=== PATIENT | female | born 1995 ===

== ENCOUNTER 2017-12-18 11:06 | Emergency (ER) | payer OTHER ==
[2017-12-18 11:17] VITALS: BP 115/80; PULSE 98; RESP 18; TEMP 98; O2SAT 98
[2017-12-18] MEDS ORDERED: cefTRIAXone (Rocephin) 250 mg Inj IM STA (11:26)
[2017-12-18] MEDS ORDERED: Emtricitabine-Tenofovir 200 mg-300 mg Tab PO STA (11:26)
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
[2017-12-18 12:59] LABS: HCG,QUALITATIVE URINE NEGATIVE (NEGATIVE)
[2017-12-18 13:03] LABS: SQUAMOUS EPITHIAL 1 /hpf (0-5); URINE BILIRUBIN NEGATIVE (NEGATIVE); URINE BLOOD NEGATIVE (NEGATIVE); URINE CLARITY Clear (Clear); URINE COLOR Yellow (YELLOW); URINE GLUCOSE (UA) NORMAL (Normal); URINE LEUKOCYTE ESTERASE NEG Leu/uL (Negative); URINE PROTEIN NEGATIVE (NEGATIVE); URINE UROBILINOGEN NORMAL mg/dL (0.2-1.0)
[2017-12-19] MEDS ORDERED: Emtricitabine-Tenofovir 200 mg-300 mg Tab PO NR (11:30)
== END 2017-12-18 15:17 | disposition home or self-care (01) ==
LOC: C.ER 11:06 → MERGE 11:06 → C.ER 15:17
DX: T76.21XA Adult sexual abuse, suspected, initial encounter (principal)
CPT/HCPCS: 81001; 84703; 86592; 86703; 86706; 96372; 99284; J0696